=== PATIENT | female | born 1965 | race Caucasian/White ===

== ENCOUNTER → 2016-06-04 | Outpatient (REF) | payer OTHER | LOC: M SFHCWAGY 10:31 | PROVIDERS: ATTEND Nurse Practitioner Family | DX: Z01.419 Encounter for gynecological examination (general) (routine) without abnormal findings (principal) ==

== ENCOUNTER 2017-09-08 10:33 | Day surgery (SDC) | payer BC, OTHER ==
[2017-09-08] MEDS ORDERED: LIDOCAINE 2% INJ 100 MG/5 ML SDV (FOR ANES.) As Ordered (10:42)
[2017-09-08] MEDS ORDERED: PROPOFOL 200 MG/20 ML VIAL As Ordered (10:43)
[2017-09-08] MEDS: NS 1,000 ML IV (10:45)
== END 2017-09-08 12:02 | disposition home or self-care (01) ==
LOC: M OPP 10:33
DX: Z12.11 Encounter for screening for malignant neoplasm of colon (principal); Z80.0 Family history of malignant neoplasm of digestive organs; Z83.71 Family history of colonic polyps; K64.8 Other hemorrhoids; Z79.899 Other long term (current) drug therapy; Z80.41 Family history of malignant neoplasm of ovary
CPT/HCPCS: G0105

== ENCOUNTER → 2020-12-07 | Outpatient (REF) | payer BC ==
[~2020-12-07] MED LIST: LEVONOR/ETHI PO
== END ==
LOC: M SFHCWAGY 13:16
PROVIDERS: ATTEND Advanced Practice Midwife
DX: Z12.4 Encounter for screening for malignant neoplasm of cervix (principal)

== ENCOUNTER → 2020-12-07 | Outpatient (CLI) | payer BC ==
--- NOTE | 2020-12-07 12:19 | REPMRS ---
Patient History The patient states she had a clinical breast exam in November 2020. Family history of colorectal cancer at age 50 or over in paternal grandfather, ovarian cancer at age 50 or over in paternal grandmother. Took hormonal contraceptives for 7 years. Patient states no breast complaints today. Patient has signed MRS History Sheet. Digital Woman Screen Mammo: December 07, 2020 - Exam #: [id number] Bilateral CC and MLO view(s) were taken. Technologist: Aissatou Juan, Technologist Prior study comparison: July 18, 2017, digital woman screen mammo performed at [facility]. October 13, 2013, digital woman screen mammo performed at [facility]. FINDINGS: The breast tissue is heterogeneously dense. This may lower the sensitivity of mammography. Screening. Digital screening (2D) mammography was performed bilaterally in the CC and MLO projections. Additionally, breast tomosynthesis (3D mammography) was performed bilaterally in the CC and MLO projections. Todays exam was compared to the prior exam/exams. By history, the patient has no complaints of a palpable breast abnormality or other significant breast complaints. The Volpara volumetric breast density category is C, the breasts are heterogenously dense which may obscure small masses. The breasts are unchanged in size and shape. There are no rad-soft tissue densities or spiculated masses. There is no internal architectural distortion. There are no suspicious rad-calcific clusters. Skin thickening or nipple retraction is not present. IMPRESSION: BI-RADS Category 2- Benign Findings. There is no evidence of malignant alteration of the breasts. Followup examination recommended in one year. The lifetime Tyrer-Cuzick score is 9.2% This mammogram was read with the assistance of [employer],an FDA approved computer aided detection system for mammography. Due to the density of the breasts, MRI/whole breast screening ultrasound is warranted. Negative x-ray reports should not delay surgical consultation if a dominant or clinically suspicious mass is present. Not all breast cancers can be identified by mammography. Therefore, we recommend that you continue to perform regular breast self-examination and physical examination and then promptly contact your physician of any concerns or changes. Adenosis and dense breasts may obscure an underlying neoplasm. No significant changes when compared with prior studies. Assessment: BI-RADS/ACR category 2 mammogram. Benign Findings. Recommendation Routine screening mammogram of both breasts in 1 year. Electronically Signed By: Dwain Gilmore MD 12/07/20 [id number]
== END ==
LOC: M WHC 09:26
PROVIDERS: ATTEND Advanced Practice Midwife
DX: Z12.31 Encounter for screening mammogram for malignant neoplasm of breast (principal); Z80.41 Family history of malignant neoplasm of ovary; Z80.0 Family history of malignant neoplasm of digestive organs

== ENCOUNTER → 2020-12-22 | Outpatient (CLI) | payer BC ==
--- NOTE | 2020-12-22 15:40 | REP ---
INDICATION: MENORRHAGIA. COMPARISON: None. TECHNIQUE: Transabdominal and endovaginal probe ultrasound. FINDINGS: Bladder is adequately filled measuring 11.1 x 8.8 x 7.2 cm. There is an anteverted uterus measuring 9.3 x 5.5 x 5.6 cm. The posterior body of the uterus is a fibroid the which appears to be subserosal and measuring 1.3 x 1 x 0.9 cm. There is a central endometrial echogenic stripe with a thickness of 8 mm and without fluid in the endometrial cavity or endocervical canal. No free fluid in the cul-de-sac. The right ovary is 3.3 x 1.3 x 2.4 cm. It shows Doppler tracing with resistive index 0.6 which is normal. Normal color flow is seen. Dominant follicle is 12 mm in that right ovary. The left ovary measures 3.7 x 2.6 x 2.2 cm and shows Doppler tracing with resistive index of 0.63 this is normal and there is normal color flow in that ovary. There is a small cyst at 2.5 x 2.3 x 2 cm. There are no complex features to it. There is no adjacent free fluid. IMPRESSION: 1. Anteverted uterus with a subserosal fibroid posteriorly 1.3 x 1 cm. Endometrial stripe normal thickness with no fluid in the endometrial cavity or endocervical canal. 2. Left ovary with a 2.5 x 2.3 cm cyst and with normal Doppler tracing and color flow. No adjacent fluid. 3. Right ovary also shows normal Doppler flow and resistive index with a dominant follicle on that side of 1.2 cm. No fluid adjacent to either ovary or in the cul-de-sac. <Electronically signed by Jean Koehler > 12/22/20 [id number]
== END ==
LOC: M WHC 10:20
PROVIDERS: ATTEND Advanced Practice Midwife
DX: N92.0 Excessive and frequent menstruation with regular cycle (principal)

== ENCOUNTER → 2021-06-12 | Outpatient (CLI) | payer BC ==
[~2021-06-12] MED LIST changes: +PROHANCE 279.3MG/ML 15ML VIAL As Ordered ONE
== END ==
LOC: M RAD 10:26
PROVIDERS: ATTEND Advanced Practice Midwife
DX: R92.8 Other abnormal and inconclusive findings on diagnostic imaging of breast (principal); N60.02 Solitary cyst of left breast; N63.20 Unspecified lump in the left breast, unspecified quadrant
CPT/HCPCS: 77049; A9576